=== PATIENT | male | born 1965 | race Caucasian/White ===

== ENCOUNTER 2019-10-08 19:56 | Emergency (ER) | payer SELFPAY ==
[~2019-10-08] VITALS: Ht 177.8 cm; Wt 101.6 kg
[2019-10-08 20:05] VITALS: Ht 177.8 cm; Wt 101.6 kg
[2019-10-08 21:01] VITALS: BP 150/85
== END 2019-10-08 21:01 | disposition home or self-care (01) ==
LOC: ED 19:56
DX: K64.4 Residual hemorrhoidal skin tags (principal); R03.0 Elevated blood-pressure reading, without diagnosis of hypertension